=== PATIENT | male | born 1985 | race Two or more races ===

== ENCOUNTER 2023-02-24 00:09 | Emergency (ER) | payer MEDICAID, OTHER ==
[~2023-02-24] VITALS: Ht 180.3 cm; Wt 116.5 kg
[2023-02-24 00:15] VITALS: BP 133/72
[2023-02-24 00:55] LABS: Albumin 3.6 g/dL (3.4-5.0); Calcium 9.1 mg/dL (8.5-10.1); Magnesium 2.1 mg/dL (1.6-2.6); Potassium 3.8 mmol/L (3.5-5.1)
[2023-02-24 00:57] LABS: BUN/Creatinine Ratio 19.7 (10.0-20.0)
[2023-02-24 00:59] LABS: Bilirubin, Total 0.2 mg/dL (0.2-1.0); Total Protein 7.5 g/dL (6.4-8.2)
[2023-02-24 01:02] LABS: Basophils # (auto) 0.1 10 ^3/uL (0-0.2); Basophils % (auto) 0.8 % (0.0-2.0); Eosinophils # (auto) 0.4 10 ^3/uL (0-0.8); Eosinophils % (auto) 4.3 % (0.0-7.0); Hematocrit 41.3 % (41.0-53.0); Hemoglobin 13.6 g/dL (13.5-17.5); Lymphocytes # (auto) 2.8 10 ^3/uL (0.4-5.4); Lymphocytes % (auto) 30.1 % (10.0-50.0); Mean Corpuscular Hemoglobin 28.9 pg (28.0-32.0); Mean Corpuscular Volume 87.8 fL (80.0-100.0); Monocytes # (auto) 0.7 10 ^3/uL (0-1.3); Monocytes % (auto) 7.4 % (0.0-12.0); Neutrophils # (auto) 5.3 10 ^3/uL (1.6-8.6); Neutrophils % (auto) 57.4 % (37.0-80.0); Nucleated Red Blood Cells % 0.1 %; Red Cell Distribution Width 13.6 % (11.8-14.3); White Blood Cell 9.3 10^3/uL (4.4-10.8)
== END 2023-02-24 01:05 | disposition left against medical advice (07) ==
LOC: ER 00:09
DX: R07.9 Chest pain, unspecified (principal); Z53.21 Procedure and treatment not carried out due to patient leaving prior to being seen by health care provider
CPT/HCPCS: 36415; 71045; 80053; 83735; 84484; 85025; 93005

== ENCOUNTER 2024-01-12 02:24 | Emergency (ER) | payer MEDICAID ==
[~2024-01-12] VITALS: Ht 180.3 cm; Wt 113.6 kg
[2024-01-12 03:29] VITALS: BP 134/96; PULSE 113; RESP 18; O2SAT 99
[2024-01-12] MEDS ORDERED: IBUP-1456 PO (03:40)
== END 2024-01-12 05:50 | disposition left against medical advice (07) ==
LOC: ER 02:24
DX: S23.41XA Sprain of ribs, initial encounter (principal); F17.210 Nicotine dependence, cigarettes, uncomplicated; X58.XXXA Exposure to other specified factors, initial encounter; Y93.89 Activity, other specified; Y92.89 Other specified places as the place of occurrence of the external cause; Y99.8 Other external cause status
CPT/HCPCS: 71101

== ENCOUNTER → 2024-01-13 01:05 | Emergency (ER) | payer MEDICAID ==
[~2024-01-13 01:05] MED LIST: IBUP-1456 PO
== END | disposition left against medical advice (07) ==
LOC: ER 01:05
DX: R07.81 Pleurodynia (principal); Z53.21 Procedure and treatment not carried out due to patient leaving prior to being seen by health care provider

== ENCOUNTER → 2024-02-02 | Emergency (ER) | payer MEDICAID | END | disposition left against medical advice (07) | LOC: ER 04:46 | DX: R51.9 Headache, unspecified (principal); Z53.21 Procedure and treatment not carried out due to patient leaving prior to being seen by health care provider ==